=== PATIENT | female | born 1985 | race Hispanic/Latino ===

== ENCOUNTER 2016-09-24 05:22 | Inpatient (IN) | payer MEDICAID ==
[2016-09-24] MEDS ORDERED: LACTATED RINGERS 1,000 ML ONE (06:16)
[2016-09-24] MEDS ORDERED: BRETHINE IVP PRN (06:41)
[2016-09-24] MEDS ORDERED: MINERAL OIL PO PRN (06:41)
[2016-09-24] MEDS ORDERED: ePHEDrine SULFATE IV PRN ×2 (06:41→09:00)
[2016-09-24] MEDS ORDERED: XYLOCAINE 2% INFILTRATI ONE (06:41)
[2016-09-24] MEDS ORDERED: ZOFRAN IV PRN ×2 (06:41→15:00)
[2016-09-24] MEDS ORDERED: BRETHINE SUB-Q PRN (06:41)
[2016-09-24] MEDS ORDERED: SUBLIMAZE IV PRN (06:41)
--- NOTE | 2016-09-24 06:59 | History and Physical Report ---
History of Present Illness Date of examination: 09/24/16 Date of admission: 09/24/16 05:59 Chief complaint: I'm in labor History of present illness: Patient is a 31 year old who presents in active labor this morning. She has had an uncomplicated course. she has an of EDC 09/27/16. Past History Past Medical History: no pertinent history Past Surgical History: no surgical history Family/Genetic History: hypertension Social history: - Obstetrical History Expected Date of Delivery: 09/27/16 Actual Gestation: 39 Week(s) 4 Day(s) : 6 Para: 3 Number of Living Children: 3 Medications and Allergies Allergies Allergy/AdvReac Type Severity Reaction Status Date / Time codeine Allergy Unknown Verified 09/24/16 06:26 Active Meds: Active Medications Fentanyl (Sublimaze) 100 mcg IV Q2H PRN PRN Reason: Labor Pain Lactated Ringer's (Lactated Ringers) 1,000 mls @ 125 mls/hr IV DIRECT YOUSUF Oxytocin/Sodium Chloride (Pitocin/Ns 20 Unit/1000ml Drip) 20 units in 1,000 mls @ 125 mls/hr IV DIRECT YOUSUF Oxytocin/Sodium Chloride (Pitocin/Ns 30 Unit/500ml) 30 units in 500 mls @ 4 mls /hr IV TITR YOUSUF PRN Reason: Protocol Oxytocin/Sodium Chloride (Pitocin/Ns 30 Unit/500ml) 30 units in 500 mls @ 1 mls /hr IV TITR YOUSUF; 1 MILLIUNITS/MIN PRN Reason: Protocol Mineral Oil (Mineral Oil) 30 ml PO QHS PRN PRN Reason: Constipation Ondansetron HCl (Zofran) 4 mg IV Q8H PRN PRN Reason: Nausea And Vomiting Review of Systems All systems: negative Genitourinary: contractions - Vital Signs Vital signs: Vital Signs Pulse BP 80 139/87 09/24/16 05:27 09/24/16 05:27 Temp Pulse Resp BP Pulse Ox 97.8 F 84 20 139/87 96 09/24/16 05:33 09/24/16 05:48 09/24/16 05:33 09/24/16 05:27 09/24/16 05:48 - Physical Exam Breasts: Cardiovascular: Regular rate, Normal S1, Normal S2 Lungs: Positive: Clear to auscultation, Normal air movement Abdomen: Positive: normal appearance, soft, normal bowel sounds. Negative: distention, tenderness Genitourinary (Female): Positive: normal external genitalia, normal perenium Vulva: both: normal Vagina: Positive: normal moisture. Negative: discharge Cervix: Negative: lesion, discharge Uterus: Positive: normal size, normal contour Adnexa: both: normal Anus/Rectum: Positive: normal perianal skin, heme negative. Negative: rectal mass, hemorrhoids Extremities: Deep Tendon Reflex Grade: Normal +2 - Obstetrical Cervical Dilatation: 5 Cervical Effacement Percentage: 80 station: -2 Uterine Contraction Pattern: Regular Uterine Tone Measurement Phase: Contraction Uterine Contraction Intensity: Moderate Results All other labs normal. Assessment and Plan IUP at 39.4 weeks in active labor. Admit to L&D. Augment if needed. AROM when able. Anticipate .
[2016-09-24] MEDS ORDERED: PITOCin/NS 30 UNIT/500ML 30 UNITS/500 ML BAG IV SCH ×2 (07:00)
[2016-09-24] MEDS ORDERED: PITOCin/NS 20 UNIT/1000ML DRIP 20 UNITS/1,000 ML BAG IV SCH (07:00)
[2016-09-24] MEDS ORDERED: LACTATED RINGERS 1,000 ML IV SCH (07:00)
[2016-09-24 07:16] LABS: Hematocrit 32.4 % (30.3-42.9); Mean Corpuscular HGB Conc 34 % (30-34); Mean Corpuscular Hemoglobin 30 pg (28-32); Mean Corpuscular Volume 89 fl (79-97); Platelet Count 217 K/mm3 (140-440); Red Blood Count 3.65 M/mm3 (3.65-5.03); Red Cell Distribution Width 13.3 % (13.2-15.2); White Blood Count 10.8 K/mm3 (4.5-11.0)
[2016-09-24] MEDS ORDERED: ePHEDrine SULFATE ONE (07:27)
--- NOTE | 2016-09-24 07:49 | Anesthesia Consultation ---
Anesthesia Consult and Med Hx Date of service: 09/24/16 - Airway Anesthetic Teeth Evaluation: Good ROM Head & Neck: Adequate Mental/Hyoid Distance: Adequate Mallampati Class: Class II Intubation Access Assessment: Probably Good - Pre-Operative Health Status ASA Pre-Surgery Classification: ASA3 Proposed Anesthetic Plan: Epidural, Spinal - Pulmonary Hx Asthma: No COPD: No Hx Pneumonia: No - Cardiovascular System Hx Hypertension: No - Central Nervous System Hx Seizures: No Hx Psychiatric Problems: No - Endocrine Hx Renal Disease: No Hx End Stage Renal Disease: No Hx Hypothyroidism: No Hx Hyperthyroidism: No - Hematic Hx Anemia: No Hx Sickle Cell Disease: No - Other Systems Hx Alcohol Use: No Hx Obesity: Yes (BMI 36.2)
[2016-09-24] MEDS ORDERED: NARCAN 2 MG/2 ML IV PRN (09:00)
[2016-09-24] MEDS ORDERED: fentaNYL-BUPIV 2 MCG/ML-0.125% 200 MCG/100 ML BAG EPIDURAL SCH (09:00)
[2016-09-24] MEDS ORDERED: MOTRIN PO PRN (12:00)
[2016-09-24] MEDS ORDERED: NORCO 5/325 PO PRN (13:39)
[2016-09-24] MEDS ORDERED: DERMOPLAST TP PRN (14:30)
[2016-09-24] MEDS ORDERED: DULCOLAX PR PRN (14:30)
[2016-09-24] MEDS ORDERED: TUCKS PAD TP PRN (14:30)
[2016-09-24] MEDS ORDERED: BENADRYL PO PRN (14:30)
[2016-09-24] MEDS ORDERED: TYLENOL PO PRN (14:30)
[2016-09-24] MEDS: MOTRIN PO SCH ×2 (14:51→21:22)
[2016-09-24] MEDS ORDERED: MILK OF MAGNESIA PO PRN (15:00)
[2016-09-24] MEDS ORDERED: PHENERGAN PO PRN (15:00)
[2016-09-24] MEDS ORDERED: PHENERGAN PR PRN (15:00)
[2016-09-24] MEDS ORDERED: LANSINOH TP PRN (15:00)
[2016-09-24] MEDS ORDERED: SODIUM CHLORIDE FLUSH SYRINGE 10 ML IV NR (15:00)
[2016-09-24] MEDS: COLACE PO SCH (21:22)
[2016-09-25 00:28] LABS: Hematocrit 30.5 % (30.3-42.9); Hemoglobin 10.5 gm/dl (10.1-14.3)
[2016-09-25] MEDS: MOTRIN PO SCH ×4 (03:05→21:17)
[2016-09-25] MEDS ORDERED: BOOSTRIX IM ONE (06:00)
[2016-09-25] MEDS: PRENATAL VITAMIN PO SCH (09:49)
[2016-09-25] MEDS: COLACE PO SCH ×2 (10:51→21:19)
--- NOTE | 2016-09-25 13:25 | Procedure Note ---
OB Delivery Note - Delivery Date of Delivery: 09/24/16 Surgeon: JENNIFER LEAHY Estimated blood loss: 100cc - Vaginal Delivery presentation: vertex Delivery position: OA Intrapartum events: none Delivery induction: none Delivery monitor: external FHT, external uterine Route of delivery: Delivery placenta: spontaneous Delivery cord: 3 umbilical vessels Episiotomy: none Delivery laceration: 1st degree Delivery repair: chromic Anesthesia: epidural Delivery comments: Viable male delivered over intact perineum with 3vc. Skin to skin and delayed cord clamping applied, Weight 9 pounds 3 ounces. Apgars 7, 9. Small laceration repaired with 2.0 chromic. Placenta delivered spontaneously and intact. Patient tolerated procedure well. - Infant A at 1 minute: 8 at 5 minutes: 9 Infant Gender: Male (Weight 9 pounds 3 ounces)
--- NOTE | 2016-09-25 13:25 | Progress Note ---
Subjective - Subjective Date of service: 09/25/16 Interval history: Patient is a 31 year old who presents in active labor this morning. She has had an uncomplicated course. she has an of EDC 09/27/16. Patient reports: appetite normal, voiding normally, ambulating normally : doing well (under bili lights) Objective - Vital Signs Latest vital signs: Vital Signs Temp Pulse Resp BP 09/25/16 08:39 98.0 F 66 18 122/78 09/25/16 00:45 97.8 F 68 20 96/43 09/24/16 21:11 98 F 79 20 120/67 09/24/16 17:00 98.7 F 87 16 128/65 Intake and Output 09/24/16 09/25/16 09/25/16 22:59 06:59 14:59 Intake Total 360 Output Total 1500 Balance -1140 Intake: Intake, Free Water 360 Output: Urine 1500 Void 1500 Other: Total, Output Amount 500 # Voids Void 400 1 - Exam Cardiovascular: Present: Regular rate, Normal S1, Normal S2 Lungs: Present: Clear to auscultation, Normal air movement Abdomen: Present: normal appearance, soft, normal bowel sounds Uterus: Present: normal, firm, fundal height below umbilicus Extremities: Present: normal Deep Tendon Reflex Grade: Normal +2
--- NOTE | 2016-09-25 23:48 | Discharge Summary ---
Providers - Providers Date of Admission: 09/24/16 05:59 Date of discharge: 09/26/16 Attending physician: JENNIFER LEAHY Primary care physician: JENNIFER LEAHY Hospitalization Reason for admission: active labor Delivery: Laceration: 1st degree Other procedures: none complications: none Discharge diagnosis: IUP at term delivered baby: male Hospital course: unremarkable Condition at discharge: Good Disposition: DISCHARGED TO HOME OR SELFCARE Plan - Discharge Medications Prescriptions: Ibuprofen [Motrin] 800 mg PO Q8HR PRN #30 tablet PRN Reason: Pain Pnv with Ca,No.72/Iron/FA [ Plus Tablet] 1 each PO DAILY #30 tablet - Provider Discharge Summary Activity: routine, no sex for 6 weeks, no strenuous exercise Diet: routine Instructions: routine Additional instructions: [] Smoking cessation referral if applicable(refer to patient education folder for contact #) [] Refer to [facility] Booklet Call your doctor immediately for: * Fever > 100.5 * Heavy vaginal bleeding ( >1 pad per hour) * Severe persistent headache * Shortness of breath * Reddened, hot, painful area to leg or breast * Drainage or odor from incision. * Keep incision clean and dry at all times and follow doctor's instructions regarding bathing/showering - Follow up plan Follow up: JENNIFER LEAHY MD [Primary Care Provider] - 6 Weeks
[2016-09-26] MEDS: MOTRIN PO SCH ×2 (02:49→18:31)
[2016-09-26] MEDS: COLACE PO SCH (10:24)
[2016-09-26] MEDS: PRENATAL VITAMIN PO SCH (10:24)
[2016-09-26 17:56] VITALS: BP 124/78
== END 2016-09-26 20:35 | disposition home or self-care (01) | DRG 775 ==
LOC: TRG 05:22 → LD 05:59 → OB 13:09
PROVIDERS: ADMIT Obstetrics & Gynecology; ATTEND Obstetrics & Gynecology
PROC: 10E0XZZ Delivery of Products of Conception, External Approach (ICD-10-PCS; principal; 2016-09-24)
PROC: 3E0S3CZ (ICD-10-PCS; principal; 2016-09-24)
PROC: 00HU33Z Insertion of Infusion Device into Spinal Canal, Percutaneous Approach (ICD-10-PCS; principal; 2016-09-24)
PROC: 0HQ9XZZ Repair Perineum Skin, External Approach (ICD-10-PCS; principal; 2016-09-24)
DX: O99.214 Obesity complicating childbirth (principal); O70.0 First degree perineal laceration during delivery; Z3A.39 39 weeks gestation of pregnancy; Z37.0 Single live birth; Z82.49 Family history of ischemic heart disease and other diseases of the circulatory system; Z88.5 Allergy status to narcotic agent; Z68.36 Body mass index [BMI] 36.0-36.9, adult
CPT/HCPCS: 36415; 85014; 85018; 85027; 86850; 86900; 86901; 90471; 90715; 99211; A6250; G0463; J2590; J7120